=== PATIENT | male | born 1940 | race Caucasian/White ===

== ENCOUNTER 2016-11-05 17:52 | Emergency (ER) | payer BC, OTHER ==
[~2016-11-05] VITALS: Ht 180.3 cm; Wt 83.9 kg
[~2016-11-05 17:52] MED LIST: HYCODAN SYRUP480 ML PO; HYDROCHLOROTH12.5 M3; LISINOPRIL20 MG PO; PERCOCET 5/31 TABLET PO; PREDNISONE20 MG PO; PROAIR HFA8.5 GM IH
[2016-11-05 20:38] VITALS: BP 163/91
== END 2016-11-05 20:39 | disposition home or self-care (01) ==
LOC: EME 17:52
DX: H11.32 Conjunctival hemorrhage, left eye (principal); I10 Essential (primary) hypertension; K21.9 Gastro-esophageal reflux disease without esophagitis; Z87.891 Personal history of nicotine dependence
CPT/HCPCS: 99281; 99283